=== PATIENT | female | born 1985 | race Hispanic/Latino ===

== ENCOUNTER 2017-04-05 08:12 | Emergency (ER) | payer OTHER ==
[2017-04-05 08:33] VITALS: RESP 18; TEMP 99; O2SAT 97
[2017-04-05] MEDS ORDERED: Sodium Chloride 0.9% 1,000 ML IV STA (09:10)
--- NOTE | 2017-04-05 09:18 | ED PDOC ---
HPI: Abdomen Time Seen by Provider: 04/05/17 08:29 Chief Complaint (Nursing): Abdominal Pain Chief Complaint (Provider): Diffuse Abdominal Cramping History Per: Patient History/Exam Limitations: no limitations Onset/Duration Of Symptoms: Hrs (6 hours prior to arrival) Outside of [place] travel?: No Current Symptoms Are (Timing): Still Present Context: Food Severity: Moderate Location Of Pain/Discomfort: Diffuse Quality Of Discomfort: Cramping Associated Symptoms: Vomiting (several episodes, non-bloody), Diarrhea. denies : Fever, Other (bloody stools) Exacerbating Factors: None Alleviating Factors: Other (pain improves when she "moves her bowels") Additional Complaint(s): Jacque Petty is a 31 year old female, with no pertinent past medical history, who presents to the emergency department for the evaluation of diffuse, nonfocal abdominal cramping, that the patient has been experiencing for 6 hours. Patient states she went to a bridal shower yesterday, where she believes she may have ingested sour food. Pain reportedly improves when she moves her bowels. Associated diarrhea and several episodes of non-bloody vomiting are currently present. Denies a fever or bloody stools. PMD: none specified Past Medical History Reviewed: Historical Data, Nursing Documentation, Vital Signs Vital Signs: Last Vital Signs Temp 99 F 04/05/17 08:30 Pulse 87 04/05/17 08:30 Resp 18 04/05/17 08:30 BP 120/76 04/05/17 08:30 Pulse Ox 97 04/05/17 09:28 - Medical History PMH: Kidney Stones - Surgical History Surgical History: No Surg Hx - Family History Family History: States: No Known Family Hx - Social History Current smoker - smoking cessation education provided: No Ex-Smoker (has not smoked in the last 12 months): No Alcohol: Social Drugs: Denies - Home Medications Home Medications: Ambulatory Orders Medication Instructions Recorded Ciprofloxacin [Cipro] 1 tab PO BID #14 tab 11/16/15 Ondansetron ODT [Zofran ODT] 1 odt PO BID PRN #6 odt 11/16/15 Dicyclomine [Dicyclomine HCl] 10 mg PO TID PRN #12 cap 04/05/17 Loperamide [Loperamide HCl] 2 mg PO QID PRN #12 cap 04/05/17 Ondansetron [Zofran] 4 mg PO Q6H PRN #10 tab 04/05/17 - Allergies Allergies/Adverse Reactions: Allergies Allergy/AdvReac Type Severity Reaction Status Date / Time gluten Allergy PAIN Verified 04/05/17 09:05 Review of Systems ROS Statement: Except As Marked, All Systems Reviewed And Found Negative Constitutional: Negative for: Fever Gastrointestinal: Positive for: Vomiting (several episodes), Abdominal Pain ( diffuse, cramping), Diarrhea. Negative for: Hematemesis Genitourinary Female: Negative for: Other (bloody stools) Physical Exam - Reviewed Nursing Documentation Reviewed: Yes Vital Signs Reviewed: Yes - Physical Exam Appears: Positive for: Non-toxic, No Acute Distress Head Exam: Positive for: ATRAUMATIC, NORMOCEPHALIC Skin: Positive for: Normal Color, Warm, Dry Eye Exam: Positive for: Normal appearance, EOMI Cardiovascular/Chest: Positive for: Regular Rate, Rhythm. Negative for: Murmur Respiratory: Positive for: Normal Breath Sounds. Negative for: Respiratory Distress Gastrointestinal/Abdominal: Positive for: Normal Exam, Soft, Tenderness (mild diffuse tenderness) Back: Positive for: Normal Inspection. Negative for: L CVA Tenderness, R CVA Tenderness, Vertebral Tenderness Extremity: Positive for: Normal ROM. Negative for: Tenderness Neurologic/Psych: Positive for: Alert, Oriented - Laboratory Results Result Diagrams: 04/05/17 09:17 04/05/17 09:17 - ECG O2 Sat by Pulse Oximetry: 97 (RA) Pulse Ox Interpretation: Normal Medical Decision Making Medical Decision Makin:29 Initial Impression: Acute gastroenteritis versus acute abdomen Initial Plan: * CBC * CMP * Lipase * Urine Dip * Urine * Urinalysis * Bentyl 10 mg PO * Sodium Chloride 0.9% 1,000 ml IV at 1,000 mls/hr * Toradol 30 mg IV * Zofran Inj 4 mg IV * Reevaluation re-eval 1030a- improving, states pain mostly resolved, no longer nauseas labs reviewed +leukocytosis + mild hypokalemia, K+ replaced orally re-eval 1115am- states much improved, pain resolved, hunger starting to return, no further vomiting or diarrhea. Labwork explained, discussed value of CT scan r /o appendicitis/ colitis but pt deferred CT scan as stating feeling much better. Wants to go home. Explained indications for return, followup PMD. Rx bentyl, zofran and imodium. Diet modification. Potassium replacement. Scribe Attestation: Documented by Danny Calhoun, acting as a scribe for Dimitri Del Real III, MD. Provider Scribe Attestation: All medical record entries made by the Scribe were at my direction and personally dictated by me. I have reviewed the chart and agree that the record accurately reflects my personal performance of the history, physical exam, medical decision making, and the department course for this patient. I have also personally directed, reviewed, and agree with the discharge instructions and disposition. Disposition - Clinical Impression Clinical Impression: Gastroenteritis, Hypokalemia - Patient ED Disposition Is Patient to be Admitted: No Counseled Patient/Family Regarding: Studies Performed, Diagnosis, Need For Followup, Rx Given - Disposition Referrals: Asif Avalos MD [Staff Provider] - Disposition: Routine/Home Disposition Time: 11:22 Condition: STABLE Additional Instructions: Followup with primary doctor in 2 days if symptoms persist. Return to ER for any continuation, worse or new symptoms, or if fever develops or any abdominal pain returns. Take medication as directed and needed. Supplement potassium today with bananas or diluted orange juice. Prescriptions: Dicyclomine [Dicyclomine HCl] 10 mg PO TID PRN #12 cap PRN Reason: Gi Distress Loperamide [Loperamide HCl] 2 mg PO QID PRN #12 cap PRN Reason: Diarrhea Ondansetron [Zofran] 4 mg PO Q6H PRN #10 tab PRN Reason: Nausea/Vomiting Instructions: Dehydration (ED), Hypokalemia (ED), Gastroenteritis (ED) Forms: Air Visits Discharge (Romanian)
[2017-04-05 09:31] LABS: BASO # 0.1 K/uL (0.0-0.2); BASO % 0.3 % (0.0-2.0); EOS # 0.2 K/uL (0.0-0.7); EOS % 0.7 % (0.0-4.0); HEMATOCRIT 40.6 % (34.0-47.0); LYMPH # 2.1 K/uL (1.0-4.3); LYMPH % 9.6 % (20.0-40.0); MEAN CORPUSCULAR HEMOGLOBIN 30.4 pg (27.0-31.0); MEAN CORPUSCULAR HGB CONC 33.4 g/dL (33.0-37.0); MEAN PLATELET VOLUME 11.1 fl (7.2-11.7); MONO # 1.8 K/uL (0.0-0.8); NEUT % 81.4 % (50.0-75.0); PLATELET COUNT 193 K/uL (130-400); RED CELL DISTRIBUTION WIDTH 13.1 % (11.5-14.5); WHITE BLOOD COUNT 22.2 K/uL (4.8-10.8)
[2017-04-05 09:35] LABS: RBC URINE 1 /hpf (0-3); URINE BACTERIA RARE (<OCC); URINE BILIRUBIN NEGATIVE (NEGATIVE); URINE BLOOD NEGATIVE (NEGATIVE); URINE COLOR YELLOW (YELLOW); URINE GLUCOSE (UA) NEG (Normal); URINE KETONE NEGATIVE (NEGATIVE); URINE LEUKOCYTE ESTERASE NEG Leu/uL (Negative); URINE PROTEIN NEGATIVE (NEGATIVE); URINE UROBILINOGEN 0.2-1.0 mg/dL (0.2-1.0); WBC URINE < 1 /hpf (0-5)
[2017-04-05 10:04] LABS: NEUTROPHIL 83 % (42-75); REACTIVE LYMPHOCYTES 1 % (0-0); TOTAL CELLS COUNTED 100
[2017-04-05 10:06] LABS: GIANT PLATELETS PRESENT; LARGE PLATELETS PRESENT; STOMATOCYTES SLIGHT
[2017-04-05 10:59] LABS: ALB/GLOB RATIO 1.1 (1.0-2.1); ALKALINE PHOSPHATASE 53 U/L (38-126); ALT/SGPT 36 U/L (9-52); AST/SGOT 30 U/L (14-36); BLOOD UREA NITROGEN 15 mg/dl (7-17); CALCIUM 10.3 mg/dL (8.4-10.2); CARBON DIOXIDE 20 mmol/L (22-30); CHLORIDE 103 mmol/L (98-107); GFR AFRICAN-AMERICAN > 60; GLUCOSE,RANDOM 120 mg/dL (65-105); LIPASE 117 U/L (23-300); POTASSIUM 3.4 MMOL/L (3.6-5.0); SODIUM 137 mmol/l (132-148); TOTAL PROTEIN 7.5 G/DL (6.3-8.2)
[2017-04-05] MEDS ORDERED: Potassium Chloride 20 mEq ER Tab PO ONE (11:08)
[2017-04-05 11:32] VITALS: BP 122/72; PULSE 82
== END 2017-04-05 11:30 | disposition home or self-care (01) ==
LOC: H.ER 08:12
DX: E87.6 Hypokalemia (principal); K52.9 Noninfective gastroenteritis and colitis, unspecified; R11.10 Vomiting, unspecified; R19.7 Diarrhea, unspecified; R50.9 Fever, unspecified

== ENCOUNTER 2018-04-17 04:16 | Inpatient (IN) | payer BC, OTHER ==
[2018-04-17 04:40] VITALS: BMI 22.4
[2018-04-17 05:14] LABS: BASO # 0.1 K/uL (0.0-0.2); BASO % 1.1 % (0.0-2.0); EOS # 0.3 K/uL (0.0-0.7); EOS % 2.5 % (0.0-4.0); HEMOGLOBIN 11.7 g/dL (12.0-16.0); LYMPH # 3.9 K/uL (1.0-4.3); LYMPH % 33.1 % (20.0-40.0); MEAN CELL VOLUME 91.6 fl (81.0-99.0); MEAN CORPUSCULAR HEMOGLOBIN 30.5 pg (27.0-31.0); MEAN CORPUSCULAR HGB CONC 33.3 g/dL (33.0-37.0); MEAN PLATELET VOLUME 10.3 fl (7.2-11.7); MONO # 1.2 K/uL (0.0-0.8); NEUT # 6.2 K/uL (1.8-7.0); NEUT % 53.3 % (50.0-75.0); RBC 3.85 Mil/uL (3.80-5.20); RED CELL DISTRIBUTION WIDTH 12.8 % (11.5-14.5); WHITE BLOOD COUNT 11.7 K/uL (4.8-10.8)
[2018-04-17 05:23] LABS: ALB/GLOB RATIO 1.1 (1.0-2.1); ALT/SGPT 43 U/L (9-52); AST/SGOT 42 U/L (14-36); BLOOD UREA NITROGEN 17 mg/dl (7-17); GFR AFRICAN-AMERICAN > 60; GFR NON-AFRICAN AMERICAN > 60
[2018-04-17] MEDS ORDERED: Sodium Chloride 0.9% 50 ML IV ONE (05:31)
[2018-04-17] MEDS ORDERED: Iodixanol 320 MG/ML 100 ML BOTTLE IV ONE (05:31)
[2018-04-17 05:41] LABS: PARTIAL THROMBOPLASTIN TIME 25.6 Seconds (25.6-37.1)
--- NOTE | 2018-04-17 05:59 | ED PDOC ---
HPI: Back Time Seen by Provider: 04/17/18 04:45 Chief Complaint (Nursing): Back Pain Chief Complaint (Provider): Back Pain History Per: Patient History/Exam Limitations: no limitations Onset/Duration Of Symptoms: Days (x 1) Quality Of Discomfort: Sharp, Stabbing Additional Complaint(s): 32 years old female with history of kidney stones presents to the ED with complaints of left chest pain that radiates to left upper back associated with shortness of breath. Patient reports worsening of symptoms with moving and breathing. She describe pain as sharp and stabbing. Patient admits experiencing leg cramps which resulted from her compliant to the gym. She reports recent travel from [place] 3 weeks ago. PMD: Procedure,Nonphys Past Medical History Reviewed: Historical Data, Nursing Documentation, Vital Signs Vital Signs: Last Vital Signs Temp 99.4 F 04/17/18 04:41 Pulse 129 H 04/17/18 04:41 Resp 18 04/17/18 04:41 BP 114/91 H 04/17/18 04:41 Pulse Ox 98 04/17/18 04:41 - Medical History PMH: Kidney Stones - Surgical History Surgical History: No Surg Hx - Family History Family History: States: CAD Other Family History: Blood clot in GM - Social History Current smoker - smoking cessation education provided: No Alcohol: Social Drugs: Denies - Home Medications Home Medications: Ambulatory Orders Medication Instructions Recorded Ethinyl Estradiol/Drospirenone 1 tab PO DAILY 04/17/18 [Priya Tablet] - Allergies Allergies/Adverse Reactions: Allergies Allergy/AdvReac Type Severity Reaction Status Date / Time gluten Allergy PAIN Verified 04/05/17 09:05 Review of Systems ROS Statement: Except As Marked, All Systems Reviewed And Found Negative Cardiovascular: Positive for: Chest Pain (left) Respiratory: Positive for: Shortness of Breath Musculoskeletal: Positive for: Back Pain (left upper), Leg Pain (cramps. No leg or calf swelling) Physical Exam - Reviewed Nursing Documentation Reviewed: Yes Vital Signs Reviewed: Yes - Physical Exam Appears: Positive for: Uncomfortable Skin: Positive for: Normal Color Eye Exam: Positive for: Normal appearance Cardiovascular/Chest: Positive for: Tachycardia Respiratory: Positive for: Other (Decreased air entry) Extremity: Positive for: Normal ROM. Negative for: Pedal Edema, Calf Tenderness , Deformity Neurologic/Psych: Positive for: Alert, Oriented - Laboratory Results Result Diagrams: 04/17/18 05:10 04/17/18 05:10 - ECG O2 Sat by Pulse Oximetry: 98 (RA) Pulse Ox Interpretation: Normal - Critical Care Total Time (In Min): 30 Medical Decision Making Medical Decision Making: Time: 444 Initial Impression: 32 years old female with chest pain, shortness of breath, OCP usage and recent travel. Initial Plan: --CT Angio Chest PE Protocol --EKG --CMP --Troponin --CBC --PTT --PT --Toradol 30 mg IV Time: 521 Patient reports persistent pain; Morphine 4 mg ordered. Time: [address] FINDINGS: Pulmonary arteries: There are filling defects in the segmental branches of the left upper and bilateral lower lobe pulmonary arteries consistent with pulmonary emboli. Aorta: No acute findings. No thoracic aortic aneurysm. Lungs: Consolidation in the lingula is suspicious for pulmonary infarct. Pleural space: Unremarkable. No significant effusion. No pneumothorax. Heart: Unremarkable. No cardiomegaly. No significant pericardial effusion. No evidence of RV dysfunction. Bones/joints: No acute fracture. No dislocation. Soft tissues: Unremarkable. Lymph nodes: Unremarkable. No enlarged lymph nodes. IMPRESSION: Bilateral pulmonary emboli. Lingular consolidation suspicious for pulmonary infarct. Addendum Dictated By: Chel Wilkins MD Addendum Dictated Date Time:04/17/18 Addendum Signed by:Chel Wilkins MD Addendum signed Date Time: 04/17/18658 Addendum Transcribed By: RERE Addendum Transcribed Date Time: 04/17/18 CARLOS/CHRIS EXAM: CT Angiography Chest With Intravenous Contrast CLINICAL HISTORY: 32 years old, female; Pain; Chest pain; Additional info: Chest pain R/O pe TECHNIQUE: Axial computed tomographic angiography images of the chest with intravenous contrast using pulmonary embolism protocol. All CT scans at this facility use one or more dose reduction techniques, viz.: automated exposure control; ma/kV adjustment per patient size (including targeted exams where dose is matched to indication; i.e. head); or iterative reconstruction technique. MIP reconstructed images were created and reviewed. Coronal and sagittal reformatted images were created and reviewed. CONTRAST: 90 mL of VISI 320 administered intravenously. COMPARISON: No relevant prior studies available. FINDINGS: Pulmonary arteries: There are filling defects in the segmental branches of the left upper and bilateral lower lobe pulmonary arteries consistent with pulmonary emboli. Aorta: No acute findings. No thoracic aortic aneurysm. Lungs: Consolidation in the lingula is suspicious for pulmonary infarct. Pleural space: Unremarkable. No significant effusion. No pneumothorax. Heart: Unremarkable. No cardiomegaly. No significant pericardial effusion. No evidence of RV dysfunction. Bones/joints: No acute fracture. No dislocation. Soft tissues: Unremarkable. Lymph nodes: Unremarkable. No enlarged lymph nodes. IMPRESSION: Bilateral pulmonary emboli. Lingular consolidation suspicious for pulmonary infarct. Dictated By: Chel Wilkins MD Dictated Date/Time: 04/17/18646 Signed By: Chel Ballard MD Date Signed: 646 Transcribed By: RERE Transcribe Date/Time : 04/17/18646 CARLOS/CHRIS Time: 657 SQ Lovenox ordered for tx of PE Patient will be admitted to ICU as discussed with Dr. Avalos (medicine resolution rep) and Dr. Garcia, the hospitalist covering ICU; Dr. Garcia will communicate with day two way radio installer regarding ICU placement. Scribe Attestation: Documented by Vicki Espitia, acting as a scribe for Shaw Aguilar MD. Provider Scribe Attestation: All medical record entries made by the Scribe were at my direction and personally dictated by me. I have reviewed the chart and agree that the record accurately reflects my personal performance of the history, physical exam, medical decision making, and the department course for this patient. I have also personally directed, reviewed, and agree with the discharge instructions and disposition. Disposition - Clinical Impression Clinical Impression: Pulmonary embolism - Patient ED Disposition Is Patient to be Admitted: Yes Discussed With : Asif Avalos - Disposition Disposition Time: 06:40 Condition: GUARDED - Pt Status Changed To: Hospital Disposition Of: Inpatient - Admit Certification Admit to Inpatient:: After my assessment, the patient will require hospitalization for at least two midnights. This is because of the severity of symptoms shown, intensity of services needed, and/or the medical risk in this patient being treated as an outpatient.
--- NOTE | 2018-04-17 06:47 | CT ---
EXAM: CT Angiography Chest With Intravenous Contrast CLINICAL HISTORY: 32 years old, female; Pain; Chest pain; Additional info: Chest pain R/O pe TECHNIQUE: Axial computed tomographic angiography images of the chest with intravenous contrast using pulmonary embolism protocol. All CT scans at this facility use one or more dose reduction techniques, viz.: automated exposure control; ma/kV adjustment per patient size (including targeted exams where dose is matched to indication; i.e. head); or iterative reconstruction technique. MIP reconstructed images were created and reviewed. Coronal and sagittal reformatted images were created and reviewed. CONTRAST: 90 mL of VISI 320 administered intravenously. COMPARISON: No relevant prior studies available. FINDINGS: Pulmonary arteries: There are filling defects in the segmental branches of the left upper and bilateral lower lobe pulmonary arteries consistent with pulmonary emboli. Aorta: No acute findings. No thoracic aortic aneurysm. Lungs: Consolidation in the lingula is suspicious for pulmonary infarct. Pleural space: Unremarkable. No significant effusion. No pneumothorax. Heart: Unremarkable. No cardiomegaly. No significant pericardial effusion. No evidence of RV dysfunction. Bones/joints: No acute fracture. No dislocation. Soft tissues: Unremarkable. Lymph nodes: Unremarkable. No enlarged lymph nodes. IMPRESSION: Bilateral pulmonary emboli. Lingular consolidation suspicious for pulmonary infarct.
[2018-04-17] MEDS ORDERED: Enoxaparin 60 mg Syringe SC STA (06:48)
--- NOTE | 2018-04-17 13:47 | US ---
PROCEDURE: Bilateral lower extremity venous duplex Doppler. HISTORY: dvt COMPARISON: None available. TECHNIQUE: Bilateral common femoral, superficial femoral, popliteal and posterior tibial veins were evaluated. Flow was assessed with color Doppler, compressibility, assessment of phasic flow and augmentation response. FINDINGS: COMMON FEMORAL VEIN: Right CFV: Unremarkable. Left CFV: Unremarkable. SUPERFICIAL FEMORAL VEIN: Right SFV: Unremarkable. Left SFV: Unremarkable. POPLITEAL VEIN: Right Popliteal: Unremarkable. Left Popliteal: Unremarkable. POSTERIOR TIBIAL VEIN: Right PTV: Unremarkable. Left PTV: Unremarkable. OTHER FINDINGS: None. IMPRESSION: No evidence of deep venous thrombosis.
[2018-04-17] MEDS ORDERED: Pneumococcal 23-Valent Vaccine IM ONE (14:00)
--- NOTE | 2018-04-17 14:10 | HP ---
CHIEF COMPLAINT: Back and chest pain and shortness of breath. HISTORY OF PRESENT ILLNESS: This is a 32-year-old female with a history of kidney stones in the past, without any significant medical history who returned from [place] 2 weeks ago and was having some leg cramp, leg pain for about a week and then per the patient started having back pain, chest pain, and shortness of breath, so the patient was brought to the emergency room. There after workup, the patient was found to have bilateral pulmonary emboli, so the patient was admitted for further management. REVIEW OF SYSTEMS: Positive for chest pain, shortness pain, back pain, and leg cramps. Review of systems otherwise is negative for headache, dizziness, syncope, loss of consciousness, nausea, vomiting, diarrhea, constipation or any new joint or extremity pain. Review of systems of all other organ systems is unremarkable. PAST MEDICAL HISTORY: Significant for kidney stones. PAST SURGICAL HISTORY: Unremarkable. PERSONAL HISTORY: The patient is currently nonsmoker and nondrinker. No substance abuse. MEDICATIONS: The patient is on control pills. ALLERGIES: THE PATIENT IS NOT ALLERGIC TO ANY MEDICATIONS. FAMILY HISTORY: Significant for blood clots in grandmother and questionable . PHYSICAL EXAMINATION: GENERAL: A well-built, well-nourished 32-year-old female, in no acute distress. VITAL SIGNS: Temperature 98.3, pulse 83, respirations 16, and blood pressure 110/60. HEENT: Pupils reacting to light. No JVD. No thyromegaly. No lymphadenopathy. No nystagmus. Normocephalic, atraumatic skull. HEART: S1 and S2, normal and regular. No significant murmur, gallop or rub is heard. LUNGS: Show good bilateral air exchange. No rales or rhonchi. ABDOMEN: Soft and nontender. No organomegaly. No fluid. Bowel sounds are plus and normal. EXTREMITIES: No edema. No calf swelling. No tenderness. No acute ischemia. CENTRAL NERVOUS SYSTEM: Essentially unchanged. DIAGNOSTIC DATA: Available diagnostic data reviewed. Telemetry monitoring does not reveal significant arrhythmia. WBC 11.7, hemoglobin , hematocrit 35.2, and platelets 194,000. PT 11 and PTT 25. Sodium 140, potassium 4.1, chloride 102, bicarb 22, BUN 17, and creatinine 0.6. SMA-12 is unremarkable. Random glucose is 107. Chest CAT scan is positive for bilateral segmental pulmonary embolism. ADMITTING IMPRESSION: Pulmonary embolism and nephrolithiasis. PLAN: Plan as ordered. 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 Asif Avalos MD
--- NOTE | 2018-04-17 17:20 | CP.PCM.CON ---
History of Present Illness - History of Present Illness History of Present Illness: 32 year old female with no past medical history presenting with chest pain and shortness of breath, found to have B/L pulmonary emboli. The patient reports to sharp chest pain with associated shortness of breath which prompted her to come to the ER. A CT angio of the chest revealed B/L pulmonary emboli and lingular consolidation concerning for infarction. B/L LE venous duplex was negative for DVT. The patient does take control pills and did fly to [place] recently. She is currently on therapeutic anticoagulation and reports to feeling better. She has no hemoptysis. Past medical history: None Past surgical history: None Family history: Blood clots on both sides of the family Social history: Denies tobacco, alcohol, and illicit drug use. Allergies: NKDA Review of systems: All remaining review of systems including HEENT, cardiovascular, respiratory, gastrointestinal, genitourinary, musculoskeletal, dermatologic, neurologic, and psychiatric are negative unless mentioned in the HPI. Past Patient History - Past Social History Smoking Status: Never Smoked - RENAL Hx Kidney Stones: Yes - MUSCULOSKELETAL/RHEUMATOLOGICAL Hx Falls: No - PSYCHIATRIC Hx Substance Use: No - SURGICAL HISTORY Hx Surgeries: No - ANESTHESIA Hx Anesthesia: No Meds Allergies/Adverse Reactions: Allergies Allergy/AdvReac Type Severity Reaction Status Date / Time gluten Allergy PAIN Verified 04/05/17 09:05 - Medications Medications: Current Medications Enoxaparin Sodium (Lovenox) 60 mg SC Q12 PRUDENCE PRN Reason: Protocol Physical Exam - Head Exam Head Exam: ATRAUMATIC - Eye Exam Eye Exam: Normal appearance - ENT Exam ENT Exam: Mucous Membranes Dry - Respiratory Exam Respiratory Exam: NORMAL BREATHING PATTERN - Cardiovascular Exam Cardiovascular Exam: +S1, +S2 - GI/Abdominal Exam GI & Abdominal Exam: Normal Bowel Sounds - Extremities Exam Extremities exam: Positive for: normal inspection - Neurological Exam Neurological exam: Oriented x3 - Psychiatric Exam Psychiatric exam: Normal Affect, Normal Mood - Skin Skin Exam: Warm Results - Vital Signs Recent Vital Signs: Last Vital Signs Temp 98.3 F 04/17/18 16:25 Pulse 82 04/17/18 16:25 Resp 20 04/17/18 16:25 BP 109/55 L 04/17/18 16:25 Pulse Ox 100 04/17/18 16:25 - Labs Result Diagrams: 04/17/18 05:10 04/17/18 05:10 Labs: Laboratory Results - last 24 hr 04/17/18 04/17/18 04/17/18 05:10 05:10 05:10 WBC 11.7 H RBC 3.85 Hgb 11.7 L Hct 35.2 MCV 91.6 MCH 30.5 MCHC 33.3 RDW 12.8 Plt Count 194 MPV 10.3 Neut % (Auto) 53.3 Lymph % (Auto) 33.1 [place] % (Auto) 10.0 Eos % (Auto) 2.5 Baso % (Auto) 1.1 Neut # (Auto) 6.2 Lymph # (Auto) 3.9 [place] # (Auto) 1.2 H Eos # (Auto) 0.3 Baso # (Auto) 0.1 PT 11.0 INR 1.0 APTT 25.6 Sodium 140 Potassium 4.1 Chloride 102 Carbon Dioxide 22 Anion Gap 20 BUN 17 Creatinine 0.6 L Est GFR ( Amer) > 60 Est GFR (Non-Af Amer) > 60 Random Glucose 107 H Calcium 9.0 Total Bilirubin 0.4 AST 42 H ALT 43 Alkaline Phosphatase 43 Troponin I < 0.0120 Total Protein 7.6 Albumin 4.0 Globulin 3.7 Albumin/Globulin Ratio 1.1 Assessment & Plan (1) Pulmonary emboli Assessment and Plan: provoked from control pills and recent immobility from airplane travel on therapeutic anticoagulation inherited thrombophilia w/u sent pt agreeable to NOAC on discharge pt instructed to stop control pills duration of anticoagulation dependent on thrombophilia w/u Thank you for this interesting consult. Status: Acute
[2018-04-17] MEDS: Enoxaparin 60 mg Syringe SC SCH (22:00)
[2018-04-18 05:21] LABS: HEMOGLOBIN 11.4 g/dL (12.0-16.0); MEAN CELL VOLUME 91.5 fl (81.0-99.0); MEAN CORPUSCULAR HEMOGLOBIN 30.9 pg (27.0-31.0); MEAN CORPUSCULAR HGB CONC 33.8 g/dL (33.0-37.0); RBC 3.68 Mil/uL (3.80-5.20); RED CELL DISTRIBUTION WIDTH 12.8 % (11.5-14.5); WHITE BLOOD COUNT 9.8 K/uL (4.8-10.8)
[2018-04-18 05:36] LABS: ALBUMIN 3.4 g/dL (3.5-5.0); ALT/SGPT 33 U/L (9-52); AST/SGOT 31 U/L (14-36); BLOOD UREA NITROGEN 14 mg/dl (7-17); CALCIUM 8.9 mg/dL (8.4-10.2); GFR AFRICAN-AMERICAN > 60; GFR NON-AFRICAN AMERICAN > 60
--- NOTE | 2018-04-18 08:22 | PN ---
DATE: 04/18/2018 SUBJECTIVE: The patient is seen and examined. Interim events noted. Consults noted and appreciated. Hematology intervention noted and appreciated. The patient remains in Intensive Care Unit. chest pain much improved since admission. PHYSICAL EXAMINATION: GENERAL: The patient is in no acute distress. VITAL SIGNS: Stable. HEART: S1 and S2 normal and regular. LUNGS: Good bilateral air exchange. GASTROINTESTINAL: Abdomen is soft and nontender. EXTREMITIES: No edema and no calf swelling. No tenderness. No acute ischemia. CENTRAL NERVOUS SYSTEM: Exam is essentially unchanged. DIAGNOSTIC DATA: Available diagnostic data reviewed. Telemetry monitoring does not show any significant arrhythmia. ASSESSMENT AND PLAN: Overall, the patient's general medical condition is stable. Plan as ordered. Asif Avalos MD
[2018-04-18] MEDS: Enoxaparin 60 mg Syringe SC SCH ×2 (08:50→21:39)
--- NOTE | 2018-04-18 10:48 | PN ---
DATE: 04/18/2018 LOCATION: The patient in ICU bed 421. TIME SPENT: 35 minutes. SUBJECTIVE: The patient is seen and evaluated at the bedside. A 32-year-old female on control pills, recent travel on long flight [place], admitted with left precordial pain associated with shortness of breath. CT angio bilateral pulmonary embolism. Venous Doppler negative lower extremities, on therapeutic anticoagulation since admission. Overnight normotensive, afebrile, less short of breath, pain reducing on an analgesics, this morning ambulated to bathroom, no dizziness, palpitation or chest pain. OBJECTIVE: VITAL SIGNS: Temperature 98.5, heart rate 86 and regular, blood pressure of 102/46, and pulse oximetry 99%. HEENT: Pupils are reactive. Conjunctivae pink. Sclerae are white. NECK: Supple. Trachea central. CHEST: Bilateral breath sounds clear to auscultation. HEART: Rhythm regular. S1 and S2 normal. No audible murmur. ABDOMEN: Bowel sounds present. Soft. EXTREMITIES: No palpable cord. Dorsalis pedis palpable. SKIN: Without rash. NEUROLOGIC: Nonfocal. CURRENT MEDICATIONS: Lovenox 60 subcu every 12 hours and Motrin 400 mg every 6 hours p.r.n. for pain. LABORATORY DATA: WBC 9.8, hemoglobin 11.4, hematocrit 33.7, platelet count 171. PT 11, INR 1, and PTT 25.6. SMA-7; sodium 141, potassium 4.1, chloride 105, CO2 25, BUN 14, creatinine 0.6, glucose 99, calcium 8.9, total bilirubin 0.3, AST 31, ALT 33, and alkaline phosphatase 40. Troponin less than 0.01 . Total protein 6.9 and albumin 3.4. Microbiology, none reported. IMPRESSION: A 32-year-old female admitted with bilateral pulmonary embolism with left pleuritic pain associated with dyspnea, on therapeutic anticoagulation, symptoms improved and remained hemodynamically stable on Motrin 400 mg p.o. every 6 hours, family history positive for blood clots back towards seen by hematology/oncology. RECOMMENDATIONS: Hypercoagulable workup sent, results pending. The patient is counseled by hematology to stop taking the control pills. The patient is still noted to have some pain on the left leg, but diminishing. We will continue with the current anticoagulation. The patient can be transferred out from ICU to telemetry floor and can initiate on oral anticoagulant to complete for about 6 months if hypercoagulable workup negative for inherited thrombophilia. James Herrera MD ENRRIQUE
[2018-04-19 07:55] VITALS: BP 112/75; PULSE 77; RESP 19; TEMP 98; O2SAT 97
[2018-04-19] MEDS: Enoxaparin 60 mg Syringe SC SCH (08:17)
--- NOTE | 2018-04-19 08:38 | PN ---
DATE: 07/18/2018 CRITICAL CARE PROGRESS NOTE LOCATION: The patient in ICU bed 421. IDENTIFICATION DATA: The patient is seen and evaluated at the bedside. Past medical, surgical, social, and family history reviewed. HISTORY OF PRESENT ILLNESS: A 32-year-old female on oral contraceptives and no other significant medical history and actively exercising. She reportedly sustained pain on her left leg after jogging while and then noted to have a shortness of breath mostly in the interscapular area with the radiation to her left shoulder . Also associated with dyspnea. She came to emergency room showed bilateral pulmonary emboli. Started on Lovenox and admitted to ICU for further evaluation and follow-up hemodynamic stability. PAST SURGICAL HISTORY: Unremarkable. PAST MEDICAL HISTORY No history of asthma, bronchitis, or pneumonia, no reported kind per coagulable state of repair. No history of pulmonary/systemic hypertension. SOCIAL HISTORY Nonsmoker and known EtOH user on oral contraceptives for protection. FAMILY HISTORY: Negative for hypercoagulable state. 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 ALLERGIES: None documented. REVIEW OF SYSTEMS: Denies chest pain, palpitation. No abdominal pain, or diarrhea . No dysuria. PHYSICAL EXAMINATION: GENERAL: On examination, a well-built female, oriented to name, place and time. No distress noted. VITAL SIGNS: Temperature of 98.3, heart rate of 83 and regular, blood pressure of 110/60, mean arterial pressure of 76, and respiratory rate of 16, thoracoabdominal. HEAD, EYES, EARS, NOSE AND THROAT: Pupils are reactive. Conjunctivae pink. Sclerae are white. NECK: Supple. Trachea is central. CHEST: Bilateral breath sounds clear to auscultation. CARDIOVASCULAR: Heart rhythm regular. S1 and S2 normal intensity. No S3 or S4 gallop. No audible murmur. ABDOMEN: Bowel sound is present. Soft. Liver and spleen not palpable. GENITOURINARY: Bladder not distended. EXTREMITIES: No clubbing, cyanosis or edema. NEUROLOGIC: Examination is non focal. LABORATORY DATA WBC of 11.7, hemoglobin of 11.7, hematocrit of 35.2, and platelet count of 194. Neutrophils of 53.3, lymphocytes of 33.1, and monocytes of 10. PT of 11, INR of 1, and PTT of 25.6. SMA-7: Sodium of 140, potassium of 4.1, chloride of 102, CO2 of 22, blood urea nitrogen of 17, creatinine of 0.6, random glucose of 107, and calcium of 9. Total bilirubin of 0.4, AST of 43, ALT of 43, and alkaline phosphatase of 43. Troponin is less than 0.0120. Total protein 7.74. Blood culture no growth reported. DIAGNOSTIC DATA: Extremity ultrasound unremarkable. Chest CT; consolidation in the lingula suspicious for pulmonary infarct and bilateral pulmonary emboli. IMPRESSION AND PLAN: Young female with no significant medical history other than being on oral contraceptives, admitted with bilateral pulmonary emboli. Venous Doppler negative for deep venous thrombosis. Currently on Lovenox. Hypercoagulable workup to rule out any underlying inherited abnormality. Continue Lovenox 1 mg per kg subcutaneous q. 12 hours. and analgesics as needed. James Herrera MD MTDD
--- NOTE | 2018-04-19 11:09 | CP.PCM.PCO ---
Assessment & Plan - Assessment and Plan (Free Text) Assessment: pt. doing well this morning, denies sob, cp, palpitation, fever or chills Ambulating in hallway pt. cleared for discharge to HOme today after echo ; Rx for Pradaxa 150 mg po bid sent to [facility] pharmacy pt. cleared for d/c today by and f/u with in1-2 weeks
--- NOTE | 2018-04-19 14:33 | PN ---
DATE: 04/19/2018 SUBJECTIVE: The patient is seen and examined. Interim events noted. Consults noted and appreciated. Hematology followup and intervention noted and appreciated. The patient feels much better. No chest pain, shortness of breath, or coughing. PHYSICAL EXAMINATION: GENERAL: The patient is in no acute distress. VITAL SIGNS: Stable. HEART: S1 and S2, normal and regular. LUNGS: Good bilateral air exchange. ABDOMEN: Soft and nontender. EXTREMITIES: No edema. No calf swelling. No tenderness. No acute ischemia. CENTRAL NERVOUS SYSTEM: Exam is essentially unchanged. IMPRESSION AND PLAN: Overall, the patient is medically stable. Plan as ordered. Case and plan discussed with the patient. Case was also discussed with family friend who is physician at [facility]. Echocardiogram was requested and ordered. The patient is followed up by family care physician and Hematology as outpatient. Asif Avalos MD
--- NOTE | 2018-04-20 07:57 | CARD ---
APPROVED REPORT EXAM: Two-dimensional and M-mode echocardiogram with Doppler and color Doppler. Other Information Quality : GoodRhythm : NSR INDICATION Pulmonary Embolism 2D DIMENSIONS IVSd0.82 (0.7-1.1cm)LVDd4.41 (3.9-5.9cm) LVOT Diameter2.33 (1.8-2.4cm)PWd0.90 (0.7-1.1cm) IVSs1.21 (0.8-1.2cm)LVDs2.90 (2.5-4.0cm) FS (%) 34.3 %PWs1.23 (0.8-1.2cm) M-Mode DIMENSIONS Left Atrium (MM)3.06 (2.5-4.0cm)IVSd1.00 (0.7-1.1cm) Aortic Root3.23 (2.2-3.7cm)LVDd5.02 (4.0-5.6cm) Aortic Cusp Exc.2.15 (1.5-2.0cm)PWd0.74 (0.7-1.1cm) IVSs1.22 cmFS (%) 39 % LVDs3.08 (2.0-3.8cm)PWs1.41 cm Mitral Valve MV E Ayrykqru19.8cm/sMV DECEL [id number] A Cmzkzpmq17.8cm/s MV AIS61djJ/A ratio2.3MVA (PHT)3.52cm2 TDI Lateral E' Peak V21.02cm/sMedial E' Peak V13.28cm/sE/Lateral E'3.7 E/Medial E'5.8 Pulmonary Valve PV Peak Xtsvwrmm25.5cm/s LEFT VENTRICLE The left ventricle is normal size. There is normal left ventricular wall thickness. Left ventricle systolic function is normal. The Ejection Fraction is 60-65%. There is normal LV segmental wall motion. The left ventricular diastolic function is normal. RIGHT VENTRICLE The right ventricle is normal size. There is normal right ventricular wall thickness. The right ventricular systolic function is normal. ATRIA The left atrium size is normal. The right atrium size is normal. AORTIC VALVE The aortic valve is normal in structure. No aortic regurgitation is present. There is no aortic valvular stenosis. MITRAL VALVE The mitral valve is normal in structure. There is no evidence of mitral valve prolapse. There is no mitral valve stenosis. There is no mitral valve regurgitation noted. TRICUSPID VALVE The tricuspid valve is normal in structure. There is no tricuspid valve regurgitation noted. PULMONIC VALVE The pulmonary valve is normal in structure. There is no pulmonic valvular regurgitation. GREAT VESSELS The aortic root is normal in size. The IVC is normal in size and collapses >50% with inspiration. PERICARDIAL EFFUSION The pericardium appears normal. <Conclusion> The left ventricle is normal size. There is normal left ventricular wall thickness. There is normal LV segmental wall motion. Left ventricle systolic function is normal. The Ejection Fraction is 60-65%. The left ventricular diastolic function is normal.
--- NOTE | 2018-04-20 11:15 | CARD ---
APPROVED REPORT EKG Measurement Heart [id number] <Conclusion> Sinus tachycardia Nonspecific T wave abnormality Abnormal ECG
--- NOTE | 2018-04-20 18:26 | CP.PCM.PN ---
Subjective - Date & Time of Evaluation Date of Evaluation: 04/19/18 Time of Evaluation: 09:30 - Subjective Subjective: Breathing better. Objective - Vital Signs/Intake and Output Vital Signs (last 24 hours): Temp Pulse Resp BP Pulse Ox 98.0 F 77 19 112/75 97 04/19/18 07:54 04/19/18 07:54 04/19/18 07:54 04/19/18 07:54 04/19/18 07:54 - Labs Labs: 04/18/18 04:50 04/18/18 04:50 PT 11.0 Seconds (9.8-13.1) 04/17/18 05:10 INR 1.0 (0.9-1.2) 04/17/18 05:10 APTT 25.6 Seconds (25.6-37.1) 04/17/18 05:10 - Head Exam Head Exam: ATRAUMATIC - Eye Exam Eye Exam: Normal appearance - ENT Exam ENT Exam: Mucous Membranes Dry - Respiratory Exam Respiratory Exam: NORMAL BREATHING PATTERN - Cardiovascular Exam Cardiovascular Exam: +S1, +S2 - GI/Abdominal Exam GI & Abdominal Exam: Normal Bowel Sounds Assessment and Plan (1) Pulmonary emboli Assessment & Plan: provoked from control pills and recent immobility from airplane travel on therapeutic anticoagulation inherited thrombophilia w/u sent pt agreeable to NOAC on discharge pt instructed to stop control pills duration of anticoagulation dependent on thrombophilia w/u Status: Acute
== END 2018-04-19 12:27 | disposition home or self-care (01) | DRG 176 ==
LOC: H.ER 04:16 → H.ERHOLD 06:49 → H.ICU/CCU 08:18 → H.MEDSURG1 04-18 12:11
PROVIDERS: ADMIT Internal Medicine; ATTEND Internal Medicine
DX: I26.99 Other pulmonary embolism without acute cor pulmonale (principal); T38.4X5A Adverse effect of oral contraceptives, initial encounter; Z86.711 Personal history of pulmonary embolism; Z86.718 Personal history of other venous thrombosis and embolism; Z87.442 Personal history of urinary calculi

== ENCOUNTER 2018-09-24 16:42 | Emergency (ER) | payer BC ==
[2018-09-24 16:42] VITALS: BMI 22.4
[2018-09-24 16:58] VITALS: RESP 18; O2SAT 100
[2018-09-24] MEDS ORDERED: Sodium Chloride 0.9% 1,000 ML IV STA (17:24)
--- NOTE | 2018-09-24 17:25 | ED PDOC ---
HPI: Abdomen Time Seen by Provider: 09/24/18 16:57 Chief Complaint (Nursing): Abdominal Pain Chief Complaint (Provider): abd pain History Per: Patient Onset/Duration Of Symptoms: Days (today 10am) Additional Complaint(s): Pt. with diffuse abd pain like cramping/bloating. Has had similar but not as bad from food poisoning. Nausea, nonbloody vomit x1. No diarrhea. No weakess, dyspnea. No fever, chest pain, dysuria. No back pain. Is on her period currently. Is constant pain. No new food, drinks, travel. On eliquis for PE. Past Medical History Reviewed: Nursing Documentation, Vital Signs Vital Signs: Last Vital Signs Temp 97.3 F L 09/24/18 16:55 Pulse 73 09/24/18 16:55 Resp 18 09/24/18 16:55 BP 118/69 09/24/18 16:55 Pulse Ox 100 09/24/18 16:55 - Medical History PMH: Pulmonary Embolism - Surgical History Surgical History: No Surg Hx - Family History Family History: States: Unknown Family Hx, CAD - Living Arrangements Living Arrangements: With Family - Social History Current smoker - smoking cessation education provided: No Alcohol: None Drugs: Denies - Home Medications Home Medications: Ambulatory Orders Medication Instructions Recorded Dabigatran [Pradaxa] 150 mg PO Q12 #60 cap 04/19/18 Ibuprofen [Motrin Tab] 400 mg PO Q6 PRN tab 04/19/18 Ciprofloxacin HCl [Cipro] 500 mg PO BID 7 Days tab 09/24/18 Dicyclomine [Dicyclomine HCl] 10 mg PO BID PRN 5 Days cap 09/24/18 Metronidazole [Flagyl] 500 mg PO TID 7 Days tablet 09/24/18 Ondansetron [Zofran] 4 mg PO Q8H PRN #6 tab 09/24/18 - Allergies Allergies/Adverse Reactions: Allergies Allergy/AdvReac Type Severity Reaction Status Date / Time gluten Allergy PAIN Verified 09/24/18 16:53 Review of Systems ROS Statement: Except As Marked, All Systems Reviewed And Found Negative Gastrointestinal: Positive for: Nausea, Vomiting, Abdominal Pain. Negative for: Diarrhea, Constipation Physical Exam - Reviewed Nursing Documentation Reviewed: Yes Vital Signs Reviewed: Yes - Physical Exam Appears: Positive for: Non-toxic, No Acute Distress Head Exam: Positive for: ATRAUMATIC, NORMAL INSPECTION, NORMOCEPHALIC Skin: Positive for: Normal Color, Warm, DRY Eye Exam: Positive for: EOMI, Normal appearance, PERRL ENT: Positive for: Normal ENT Inspection Neck: Positive for: Normal, Painless ROM Cardiovascular/Chest: Positive for: Regular Rate, Rhythm Respiratory: Positive for: CNT, Normal Breath Sounds Gastrointestinal/Abdominal: Positive for: Soft, Tenderness (diffuse). Negative for: Guarding Back: Positive for: Normal Inspection. Negative for: L CVA Tenderness, R CVA Tenderness Extremity: Positive for: Normal ROM. Negative for: Tenderness, Pedal Edema Neurologic/Psych: Positive for: Alert, Oriented - Laboratory Results Result Diagrams: 09/24/18 17:54 09/24/18 17:54 Interpretation Of Abn Labs: 3.3 k - ECG O2 Sat by Pulse Oximetry: 100 Pulse Ox Interpretation: Normal - CT Scan/US ct Other Rad Studies (CT/US): Read By Radiologist Other Rad Interpretation: colitis - Progress ED Course And Treament: 2155: Stable. AAOx3. Feels better. No pain. Fu with GI. Tolerated PO. Disposition - Clinical Impression Clinical Impression: Colitis, Hypokalemia - Patient ED Disposition Is Patient to be Admitted: No Counseled Patient/Family Regarding: Studies Performed, Diagnosis, Need For Followup, Rx Given - Disposition Referrals: Dimitri Plata MD, PhD [Staff Provider] - 09/27/18 Disposition: Routine/Home Disposition Time: 21:00 Condition: STABLE Additional Instructions: Return if not better in 3 days. Prescriptions: Ciprofloxacin HCl [Cipro] 500 mg PO BID 7 Days tab Dicyclomine [Dicyclomine HCl] 10 mg PO BID PRN 5 Days cap PRN Reason: Pain, Moderate (4-7) Metronidazole [Flagyl] 500 mg PO TID 7 Days tablet Ondansetron [Zofran] 4 mg PO Q8H PRN #6 tab PRN Reason: Nausea/Vomiting Instructions: Acute Abdomen (Belly Pain), Hypokalemia (DC) Forms: [employer] ([place]), [facility] ED School/Work Excuse
[2018-09-24 18:07] LABS: BASO % 0.5 % (0.0-2.0); EOS # 0.1 K/uL (0.0-0.7); EOS % 0.6 % (0.0-4.0); HEMOGLOBIN 13.2 g/dL (12.0-16.0); LYMPH # 0.6 K/uL (1.0-4.3); LYMPH % 5.8 % (20.0-40.0); MEAN CELL VOLUME 92.5 fl (81.0-99.0); MEAN CORPUSCULAR HGB CONC 33.6 g/dL (33.0-37.0); MEAN PLATELET VOLUME 10.1 fl (7.2-11.7); MONO # 0.5 K/uL (0.0-0.8); MONO % 4.9 % (0.0-10.0); NEUT # 8.5 K/uL (1.8-7.0); NEUT % 88.2 % (50.0-75.0); PLATELET COUNT 192 K/uL (130-400); RBC 4.26 Mil/uL (3.80-5.20); RED CELL DISTRIBUTION WIDTH 13.4 % (11.5-14.5); WHITE BLOOD COUNT 9.7 K/uL (4.8-10.8)
[2018-09-24] MEDS ORDERED: Iohexol 240 (50 ml) PO ONE ×2 (18:09→18:30)
[2018-09-24 18:26] LABS: INR 1.1; PROTHROMBIN TIME 12.6 Seconds (9.8-13.1)
[2018-09-24 18:29] LABS: ALB/GLOB RATIO 1.2 (1.0-2.1); ALBUMIN 3.9 g/dL (3.5-5.0); ALT/SGPT 30 U/L (9-52); AST/SGOT 23 U/L (14-36); BLOOD UREA NITROGEN 17 mg/dl (7-17); CALCIUM 8.7 mg/dL (8.4-10.2); GFR NON-AFRICAN AMERICAN > 60; LIPASE 63 U/L (23-300); PARTIAL THROMBOPLASTIN TIME 28.8 Seconds (25.6-37.1)
[2018-09-24] MEDS ORDERED: Iohexol 300 100 ML IJ ONE (19:01)
[2018-09-24] MEDS ORDERED: Sodium Chloride 0.9% 50 ML IV ONE (19:01)
[2018-09-24 20:06] LABS: BANDS 3 % (0-2); EOSINOPHIL 1 % (0-7); HYPOCHROMIC SLIGHT; LYMPHOCYTE 8 % (20-50); MONOCYTE 5 % (0-10); NEUTROPHIL 83 % (42-75); PLATELET ESTIMATE NORMAL (NORMAL); TOTAL CELLS COUNTED 100
[2018-09-24] MEDS ORDERED: Potassium Chloride 20 mEq ER Tab PO STA (21:53)
[2018-09-24] MEDS ORDERED: Potassium Chloride 20 mEq ER Tab PO ONE (22:17)
[2018-09-24 22:24] VITALS: BP 108/68; PULSE 85; TEMP 99.5
--- NOTE | 2018-09-25 09:22 | CT ---
Date of service: 09/24/2018 PROCEDURE: CT Abdomen and Pelvis with contrast HISTORY: abd pain COMPARISON: None. TECHNIQUE: Contrast dose: 95 mL Omnipaque 300 Radiation dose: Total exam DLP = 513.02 mGy-cm. This CT exam was performed using one or more of the following dose reduction techniques: Automated exposure control, adjustment of the mA and/or kV according to patient size, and/or use of iterative reconstruction technique. FINDINGS: LOWER THORAX: Unremarkable. LIVER: Unremarkable. No gross lesion or ductal dilatation. GALLBLADDER AND BILE DUCTS: Unremarkable. PANCREAS: Unremarkable. No gross lesion or ductal dilatation. SPLEEN: Unremarkable. ADRENALS: Unremarkable. No mass. KIDNEYS AND URETERS: Tiny left lower pole sub centimeter cyst. No hydronephrosis. No solid mass. VASCULATURE: Unremarkable. No aortic aneurysm. No aortic atherosclerotic calcification or mural plaque present. BOWEL: Unremarkable. No obstruction. No gross mural thickening. APPENDIX: Normal appendix. PERITONEUM: Tiny fat containing umbilical hernia. No free fluid. No free air. LYMPH NODES: Unremarkable. No enlarged lymph nodes. BLADDER: Unremarkable. REPRODUCTIVE: Unremarkable. BONES: No acute fracture. OTHER FINDINGS: None. IMPRESSION: No acute abdominal pelvic pathology.
== END 2018-09-24 22:33 | disposition home or self-care (01) ==
LOC: H.ER 16:42
DX: K52.9 Noninfective gastroenteritis and colitis, unspecified (principal); E87.6 Hypokalemia; Z79.01 Long term (current) use of anticoagulants; Z86.711 Personal history of pulmonary embolism
CPT/HCPCS: 74177; 80053; 81025; 83690; 85025; 85610; 85730; 96361; 96374; 96375; 99283; J2405; J7030; Q9966; Q9967

== ENCOUNTER 2019-03-17 20:32 | Emergency (ER) | payer BC ==
[2019-03-17 20:32] VITALS: BMI 22.4
[2019-03-17 20:44] VITALS: BP 128/80; RESP 16; TEMP 98.8
--- NOTE | 2019-03-17 21:59 | ED PDOC ---
HPI: Chest Pain Time Seen by Provider: 03/17/19 21:33 Chief Complaint (Nursing): Chest Pain History Per: Patient Additional Complaint(s): Pt. states this morning she woke up with mid-sternal non-radiating chest pain. Reports pain is worsened with movement and is unrelated to breathing. Reports last year she was dx with a PE but states pain is different as at that time pain was associated with breathing. Pt. states she was discontinued from taking Eliquis and is also no longer taking OCP. Denies hemoptysis, fever, chills, leg pain, trauma, recent surgery. Pt. admits to drinking alcohol today. - Risk Factors PE Risk Factors: Pos: Previous PE Past Medical History Reviewed: Historical Data, Nursing Documentation, Vital Signs Vital Signs: Last Vital Signs Temp 98.8 F 03/17/19 20:44 Pulse 78 03/17/19 20:44 Resp 16 03/17/19 20:44 BP 128/80 03/17/19 20:44 Pulse Ox 98 03/17/19 20:44 - Medical History PMH: Kidney Stones, Pulmonary Embolism - Family History Family History: States: CAD (at 59 y/o father had OH) - Social History Current smoker - smoking cessation education provided: No Ex-Smoker (has not smoked in the last 12 months): No Drugs: Denies - Home Medications Home Medications: Ambulatory Orders Medication Instructions Recorded Dabigatran [Pradaxa] 150 mg PO Q12 #60 cap 04/19/18 Ibuprofen [Motrin Tab] 400 mg PO Q6 PRN tab 04/19/18 Ciprofloxacin HCl [Cipro] 500 mg PO BID 7 Days tab 09/24/18 Dicyclomine [Dicyclomine HCl] 10 mg PO BID PRN 5 Days cap 09/24/18 Metronidazole [Flagyl] 500 mg PO TID 7 Days tablet 09/24/18 Ondansetron [Zofran] 4 mg PO Q8H PRN #6 tab 09/24/18 - Allergies Allergies/Adverse Reactions: Allergies Allergy/AdvReac Type Severity Reaction Status Date / Time gluten Allergy PAIN Verified 03/17/19 20:45 MARYJANE Risk Score for UA/NSTEMI - MARYJANE Risk Score Age > 64: NO 3 or more CAD Risk Factors: NO Known CAD (Stenosis greater than 50%): NO Aspirin use in past 7 days: NO Severe Angina: NO EKG ST changes greater than 0.5mm: NO Positive Cardiac Marker: NO MARYJANE Score: 0 Risk %: 5% Wells Criteria for PE - Wells Criteria for Pulmonary Embolism Clinical Signs and Symptoms of DVT: No P.E is #1 Diagnosis, or Equally Likely: No Heart Rate >100: No Immobilization at least 3 days;Surgery previous 4 weeks: No Previous, objectively diagnosed PE or DVT: Yes Hemoptysis: No Malignancy w/treatment within 6 months, or palliative: No Total Score: 1.5 Review of Systems ROS Statement: Except As Marked, All Systems Reviewed And Found Negative Cardiovascular: Positive for: Chest Pain Physical Exam - Physical Exam Appears: Positive for: Well, Non-toxic, No Acute Distress Skin: Positive for: Normal Color, Warm. Negative for: Rash Eye Exam: Positive for: Normal appearance Neck: Positive for: Normal, Painless ROM, Supple Cardiovascular/Chest: Positive for: Regular Rate, Rhythm, Chest Non Tender. Negative for: Tachycardia Respiratory: Positive for: Normal Breath Sounds. Negative for: Respiratory Distress Gastrointestinal/Abdominal: Positive for: Soft. Negative for: Tenderness Neurological/Psych: Positive for: Awake, Alert, Oriented (x3) - Laboratory Results Result Diagrams: 03/17/19 22:06 03/17/19 22:06 - ECG ECG: Positive for: Interpreted By Me ECG Rhythm: Positive for: Sinus Rhythm. Negative for: ST/T Changes Rate: 91 O2 Sat by Pulse Oximetry: 98 - Radiology X-Ray: Interpreted by Me (CXR) X-Ray Interpretation: No Acute Disease - Progress ED Course And Treament: Labs ordered. PERC score 1 Medical Decision Making Medical Decision Makin CT Angio Chest FINDINGS: PULMONARY ARTERIES No evidence of central or segmental pulmonary embolism is seen. AORTA There is no evidence for aneurysm or dissection of the thoracic aorta. LUNGS The lungs appear clear. PLEURAL SPACES No pneumothorax evident. No pleural effusions. HEART Normal heart size. No pericardial effusion. LYMPH NODES No lymphadenopathy is evident. BONES No focal osseous abnormality or acute fracture. UPPER ABDOMEN Images of the upper abdomen are unremarkable. IMPRESSION: Unremarkable pulmonary embolism protocol CTA of the chest. Pt. informed of results. Advised to f/u with PMD for further evaluation but is to return to ED immediately if symptoms worsen. Disposition - Clinical Impression Clinical Impression: Chest wall pain - Patient ED Disposition Is Patient to be Admitted: No - Disposition [facility] Disposition: Routine/Home Disposition Time: 23:36 Condition: STABLE Additional Instructions: FOLLOW UP WITH YOUR DOCTOR FOR FURTHER EVALUATION RETURN TO ED IMMEDIATELY IF SYMPTOMS WORSEN MNOSERRAT SERNATA, thank you for letting us take care of you today. Your provider was Mounika Mcdonald MD and you were treated for CHEST PAIN. The emergency medical care you received today was directed at your acute symptoms. If you were prescribed any medication, please fill it and take as directed. It may take several days for your symptoms to resolve. Return to the Emergency Department if your symptoms worsen, do not improve, or if you have any other problems. Please contact your doctor or call one of the physicians/clinics you have been referred to that are listed on the Patient Visit Information form that is included in your discharge packet. Bring any paperwork you were given at discharge with you along with any medications you are taking to your follow up visit. Our treatment cannot replace ongoing medical care by a primary care provider outside of the emergency department. Thank you for allowing the [facility] team to be part of your care today. If you had an X-Ray or CT scan: A Radiologist will review the ED reading if any change in treatment is needed we will contact you. If you had a blood, urine, or wound culture: It will take several days for the results, if any change in treatment is needed we will contact you. If you had an STI test: It will take 48 hours for the results. Please call after 1 week if you have not heard back. Instructions: Chest Pain That Is Not Caused by the Heart (DC) Forms: [employer] (Citizen [place])
[2019-03-17 22:13] LABS: BASO # 0.1 K/uL (0.0-0.2); BASO % 0.8 % (0.0-2.0); EOS # 0.2 K/uL (0.0-0.7); EOS % 2.6 % (0.0-4.0); HEMOGLOBIN 12.4 g/dL (12.0-16.0); LYMPH # 3.6 K/uL (1.0-4.3); LYMPH % 42.3 % (20.0-40.0); MEAN CELL VOLUME 91.3 fl (81.0-99.0); MEAN CORPUSCULAR HEMOGLOBIN 30.3 pg (27.0-31.0); MEAN CORPUSCULAR HGB CONC 33.2 g/dL (33.0-37.0); MEAN PLATELET VOLUME 10.5 fl (7.2-11.7); MONO # 0.6 K/uL (0.0-0.8); MONO % 7.5 % (0.0-10.0); NEUT % 46.8 % (50.0-75.0); NRBC % 0.1 % (0.0-0.0); RBC 4.07 Mil/uL (3.80-5.20); RED CELL DISTRIBUTION WIDTH 13.1 % (11.5-14.5); WHITE BLOOD COUNT 8.6 K/uL (4.8-10.8)
[2019-03-17 22:18] LABS: PROTHROMBIN TIME 10.8 Seconds (9.8-13.1)
[2019-03-17 22:20] LABS: PARTIAL THROMBOPLASTIN TIME 29.4 Seconds (25.6-37.1)
[2019-03-17 22:37] LABS: ALB/GLOB RATIO 1.4 (1.0-2.1); ALBUMIN 4.2 g/dL (3.5-5.0); ALT/SGPT 23 U/L (9-52); AST/SGOT 31 U/L (14-36); BLOOD UREA NITROGEN 13 mg/dl (7-17); CALCIUM 9.2 mg/dL (8.4-10.2); GFR NON-AFRICAN AMERICAN > 60
[2019-03-17] MEDS ORDERED: Iodixanol 320 MG/ML 100 ML BOTTLE IV ONE (22:38)
[2019-03-17] MEDS ORDERED: Sodium Chloride 0.9% 50 ML IV ONE (22:39)
[2019-03-18 01:44] VITALS: PULSE 91; O2SAT 98
--- NOTE | 2019-03-18 09:26 | RAD ---
Date of service: 03/17/2019 HISTORY: Chest pain COMPARISON: No prior. TECHNIQUE: 1 view obtained. FINDINGS: LUNGS: No active pulmonary disease. PLEURA: No significant pleural effusion identified, no pneumothorax apparent. CARDIOVASCULAR: No aortic atherosclerotic calcification present. Normal cardiac size. No pulmonary vascular congestion. OSSEOUS STRUCTURES: No significant abnormalities. VISUALIZED UPPER ABDOMEN: Normal. OTHER FINDINGS: None. IMPRESSION: No active disease.
--- NOTE | 2019-03-18 09:43 | CARD ---
APPROVED REPORT Date of service: 03/17/2019 EKG Measurement Heart [id number] <Conclusion> Normal sinus rhythm Normal ECG
--- NOTE | 2019-03-18 10:30 | CT ---
Date of service: 03/17/2019 PROCEDURE: CT Chest with contrast (Pulmonary Angiogram) HISTORY: History of PE, chest pain COMPARISON: None available. TECHNIQUE: Axial computed tomography images were obtained of the chest in the pulmonary arterial phase of enhancement. Coronal and sagittal reformatted images were created and reviewed. Intravenous contrast dose: 79 cc Omnipaque 320 contrast material. Radiation dose: Total exam DLP = 250.6 mGy-cm. This CT exam was performed using one or more of the following dose reduction techniques: Automated exposure control, adjustment of the mA and/or kV according to patient size, and/or use of iterative reconstruction technique. FINDINGS: PULMONARY ARTERIES: The pulmonary trunk, right and left main, lobar, segmental and proximal subsegmental branches of the pulmonary arteries are well opacified with no definitive filling defects seen suggest acute central pulmonary embolus. Pulmonary trunk measures approximately 2.5 cm. AORTA: No acute findings. No thoracic aortic aneurysm. Ascending thoracic aorta measures approximately 2.8 cm and descending thoracic aorta measures approximately 1.9 cm. No aortic atherosclerotic calcification or mural plaque present. LUNGS: Unremarkable. No nodule, mass or pulmonary consolidation. PLEURAL SPACES: Unremarkable. No effusion or pneumothorax. HEART: Unremarkable. No cardiomegaly. No significant pericardial effusion. LYMPH NODES: No significant mediastinal or hilar adenopathy. Trachea midline and patent with no large central endoluminal lesions. There is a small hiatal hernia BONES, CHEST WALL: Unremarkable. No fracture or destructive lesion OTHER FINDINGS: Unremarkable. IMPRESSION: No evidence of acute central pulmonary embolus.
== END 2019-03-17 23:55 | disposition home or self-care (01) ==
LOC: H.ER 20:32
DX: R07.89 Other chest pain (principal)
CPT/HCPCS: 71045; 71275; 80053; 81025; 84484; 85025; 85378; 85610; 85730; 93005; 99283; G0480; Q9967